=== PATIENT | male | born 1990 | race Caucasian/White ===

== ENCOUNTER 2021-03-04 14:42 | Observation (INO) | payer BC, SELFPAY ==
--- NOTE | ~2021-03-04 | CT_ITS ---
EXAMINATION: CT abdomen pelvis w con DATE: 03/04/2021 18:15 INDICATION: Right lower quadrant abdominal pain. TECHNIQUE: Computed tomography (CT) of the abdomen and pelvis was performed with 100 mL Omnipaque 350 intravenous contrast. Automated exposure control and iterative reconstruction technique were employe d. The dose-length product was 323.59 mGy-cm. COMPARISON: None. FINDINGS: The visualized portions of the lung bases demonstrate minimal atelectasis. No pleural effus ion. The heart size is normal. No pericardial effusion. The liver, gallbladder, spleen, pancreas, adr enal glands, and kidneys are normal. The bladder is distended. The tip of the appendix is fluid-fille d with diameter of 7 mm. There are no pathologically enlarged lymph nodes. There is no free intraperi toneal fluid. There is a right inguinal hernia containing fat. 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 IMPRESSION: 1. Appendiceal diameter of 7 mm, which is indeterminate for appendicitis. 2. Right inguinal hernia containing fat. Reviewed, dictated and finalized at location A.
[2021-03-04 14:49] VITALS: BP 174/88; PULSE 71; RESP 20; TEMP 36.5; O2SAT 100
[2021-03-04 15:10] LABS: Basophils Absolute Auto 0.1 K/mm3 (0.0-0.1); Basophils Percent Auto 1.1 % (0.2-1.2); Eosinophils Absolute Auto 0.2 K/mm3 (0-0.3); Eosinophils Percent Auto 2.1 % (0-4.4); Hematocrit 45.5 % (42.0-52.0); Hemoglobin 15.7 g/dL (14.0-18.0); Immature Granulocyte Absolute 0.02 K/mm3 (0.00-0.031); Immature Granulocyte Percent A 0.2 % (0-0.5); Lymphocytes Absolute Auto 2.89 K/mm3 (0.9-3.2); Lymphocytes Percent Auto 35.5 % (18.3-44.2); Mean Corpuscular HGB Conc 34.5 g/dl (32-36); Mean Corpuscular Hemoglobin 31.5 pg (26-34); Mean Corpuscular Volume 91.4 fl (80-100); Mean Platelet Volume 11.7 fl (7.4-10.4); Monocytes Absolute Auto 0.7 K/mm3 (0.1-0.6); Monocytes Percent Auto 8.2 % (2.6-8.5); Neutrophils Absolute Auto 4.3 K/mm3 (1.3-6.7); Neutrophils Percent Auto 52.9 % (45.5-73.1); Platelet Count Result 194 k/mm3 (150-375); Red Blood Count 4.98 M/mm3 (4.6-6.20); Red Cell Distribution Width 11.9 % (11.5-14.5); White Blood Count 8.2 K/mm3 (4.5-10.0)
[2021-03-04 15:21] LABS: Add Urine Microscopic? NO; Appearance Urine Clear (Clear); Bilirubin Urine Negative (Negative); Blood Urine Negative (Negative); Color Urine Straw (Yellow); Glucose Urine UA Negative (Negative); Ketones Urine Negative (Negative); Leukocyte Esterase Ur Negative LEU/UL (Negative); Nitrate Urine Negative (Negative); Protein Urine Negative (Negative); Specific Grav Ur 1.006 (1.001-1.035); Urobilinogen Urine Negative mg/dL (<2.0)
[2021-03-04 15:27] LABS: Alanine Aminotransferase 27 U/L (4-50); Albumin Level 4.9 g/dL (3.5-5.1); Alkaline Phosphatase 48 U/L (38-126); Anion Gap 6 mmol/L (8-16); Aspartate Amino Transferase 30 U/L (17-59); Bilirubin,Total 0.6 mg/dL (0.2-1.3); Blood Urea Nitrogen 14 mg/dL (9-20); Calcium 9.2 mg/dL (8.4-10.2); Carbon Dioxide 31 mmol/L (22-30); Chloride 102 mmol/L (98-107); Estimated CRCL calculation 97 ml/min; Estimated Glomerular Filt Rate > 60; Glucose 117 mg/dL (65-110); Lipase 183 U/L (23-300); Sodium 139 mmol/L (137-145)
--- NOTE | 2021-03-04 17:03 | ED.ABDPAIN ---
HPI - Abdominal Pain General Chief Complaint: Abdominal Pain <Leda Kumar PA-C - Last Filed: 03/04/21 19:14> Stated Complaint: RLQ ABD PAIN <Leda Kumar PA-C - Last Filed: 03/04/21 19:14> Time Seen by Provider: 03/04/21 16:56 <Leda Kumar PA-C - Last Filed: 03/04/21 19:14> Source: patient <Leda Kumar PA-C - Last Filed: 03/04/21 19:14> Mode of arrival: ambulatory <Leda Kumar PA-C - Last Filed: 03/04/21 19:14> Limitations: no limitations <Leda Kumar PA-C - Last Filed: 03/04/21 19:14> History of Present Illness HPI narrative: Patient presents the emergency department for right lower quadrant abdominal pain noted over the last couple of days. Reports pain is a constant ache. Worse with palpation of the area. Denies fever, nausea, vomiting, dysuria, hematuria. <Leda Kumar PA-C - Last Filed: 03/04/21 19:14> Related Data Allergies/Adverse Reactions: Allergies Allergy/AdvReac Type Severity Reaction Status Date / Time No Known Allergies Allergy Unverified 07/03/19 08:22 <Leda Kumar PA-C - Last Filed: 03/04/21 19:14> Review of Systems Review of Systems: CONSTITUTIONAL: Denies fever GASTROINTESTINAL: Reports abdominal pain. Denies nausea, vomiting, or diarrhea. GENITOURINARY: Denies dysuria or hematuria. <Leda Kumar PA-C - Last Filed: 03/04/21 19:14> All systems reviewed & are unremarkable except as noted in HPI and below <Leda Kumar PA-C - Last Filed: 03/04/21 19:14> [facility] Past Medical History Medical History: Medical History (Updated 03/04/21 @ 19:13 by Leda Kumar PA-C) No active medical problems <Leda Kumar PA-C - Last Filed: 03/04/21 19:14> Family History Family History: Family History Father Family history of elevated blood lipids Hypertension Grandparent Family history of elevated blood lipids Cerebrovascular accident Acute myocardial infarction, Onset Age: 86 Carcinoma of colon, Onset Age: 61 Family history of lung cancer, Onset Age: 67 Family history of malignant neoplasm of esophagus, Onset Age: 67 Mother Patient's mother is in good health Sibling Patient's sister is in good health <Leda Kumar PA-C - Last Filed: 03/04/21 19:14> Social History Social History: Social History Smoking status: Never smoker Second hand tobacco smoke exposure: No Alcohol intake: current Drinks per week: 6 Alcohol use details: beer, whiskey Substance use: never <Leda Kumar PA-C - Last Filed: 03/04/21 19:14> Exam Narrative: GENERAL: Well-appearing, well-nourished, and in no acute distress. HEAD: Normocephalic, atraumatic. EYES: EOMI. CHEST: Clear to auscultation. No respiratory distress. No wheezes rales or rhonchi HEART: Regular rate and rhythm. No murmur heard. Normal peripheral pulses. ABDOMEN: Soft, nondistended, normal active bowel sounds. Tender to palpation in the right lower quadrant, without guarding. No CVA tenderness EXTREMITIES: Normal range of motion. No edema. SKIN: Warm, dry, no rash. NEURO: No focal deficits. Alert and oriented x3. PSYCH: Normal mood and affect <AMARILYS Velasco Last Filed: 03/04/21 19:14> Course BONE PROCESS OPERATOR/PA Physician Supervision For this encounter, I have reviewed the PA documentation, treatment plan and medical decision making: And I have had [id number] time with the patient. On exam the patient is tender to palpation in the right lower quadrant there is no tenderness in the left lower quadrant left upper quadrant right upper quadrant no rebound. Discussed with patient plan for admission with serial examinations and followed by surgery in agreement at this time all questions answered <Edward Hays DO - Last Filed: 03/04/21 19:09> Consultations Consultation #1: Spo
[2021-03-04 18:53] VITALS: BP 138/72; PULSE 72; RESP 20; O2SAT 99
--- NOTE | 2021-03-04 21:20 | ADMGEN ---
This patient, Charles Cat, was admitted to 2 Medical Room 260-01 @2100. Patient/family oriented to hospital policies and general routines including ID bracelet, bed and alarms, visiting hours, pain management, procedures, bathroom and other care routines, personal items, smoking policy, room service/diet, and visiting hours. Information on how to activate the Rapid Response Team has been discussed. Patient/Family are encouraged to report perceived risks to care and to ask questions if they do not understand what they are told or what they should do.
[2021-03-04] MEDS: SODIUM CHLORIDE 0.9% IV 1,000 ML 125 ML IV CONT (21:31)
[2021-03-04 22:00] VITALS: BP 126/87; PULSE 75; RESP 16; TEMP 36.4; O2SAT 94
[2021-03-05] VITALS (8 sets, daily range): BP systolic 103–120; BP diastolic 60–72; PULSE 66–97; RESP 14–18; TEMP 36.2–36.6; O2SAT 96–100
[2021-03-05] MEDS: SODIUM CHLORIDE 0.9% IV 1,000 ML 125 ML IV CONT (06:02)
--- NOTE | 2021-03-05 07:03 | PC.NURSE ---
To OR per bed. IV intact.
--- NOTE | 2021-03-05 07:11 | PM.IMHP ---
H&P: HPI History of Present Illness Date/Time: 03/05/21 07:11 Pt is a 30 y/o M presenting to ED c/o severe RLQ abd pain. Pt reports pain over last few days although initially more diffuse and less severe in nature. Pt reports starting last night pain became much more localized and severe. Pt reports no other symptoms and denies previous episodes. Chief Complaint: acute appendicitis Review of Systems Constitutional: Constitutional: Denies anorexia, Denies body ache(s), Denies chills, Denies fatigue, Denies fever(s), Denies headache(s), Denies lethargy, Denies poor appetite, Denies weakness, Denies weight gain and Denies weight loss Eyes: Eyes: Reports no additional eye complaints ENT: Reports system reviewed and no additional complaints, except as documented Cardiovascular: Cardiovascular: Reports no additional cardiovascular complaints Respiratory: Respiratory: Reports no additional respiratory complaints Gastrointestinal: Gastrointestinal: Reports as per HPI, Reports abdominal pain, Denies belching, Denies change in bowel habits, Denies nausea and Denies vomiting Genitourinary: Genitourinary: Reports no additional male genitourinary complaints Musculoskeletal: Musculoskeletal: Reports no additional musculoskeletal complaints Integumentary/Breasts: Skin/Breast: Reports system reviewed and no additional complaints, except as docu Neurologic: Reports system reviewed and no additional complaints, except as documented Psychiatric: Psychiatric: Reports no additional psychiatric complaints Endocrine: Endocrine: Reports no additional endocrine complaints Hematologic/Lymphatic: Hematologic/Lymphatic: Reports no additional hematologic/lymphatic complaints Allergic/Immunologic: Allergic/Immunologic: Reports no additional allergic/immunologic complaints [facility] Past Medical History Medical History No active medical problems Family History Family History Father Family history of elevated blood lipids Hypertension Grandparent Family history of elevated blood lipids Cerebrovascular accident Acute myocardial infarction, Onset Age: 86 Carcinoma of colon, Onset Age: 61 Family history of lung cancer, Onset Age: 67 Family history of malignant neoplasm of esophagus, Onset Age: 67 Mother Patient's mother is in good health Sibling Patient's sister is in good health Social History Social History Smoking status: Never smoker Second hand tobacco smoke exposure: No Alcohol intake: current Drinks per week: 3 Alcohol use details: beer, whiskey Substance use: never Substance use type: does not use Spiritual care concerns: No Comments PSH - pt denies any previous abdominal surgeries Meds Home Medications and Allergies Home Medications Medication Instructions Recorded Confirmed Type amitriptyline 50 mg PO QPM 03/04/21 03/04/21 History Allergies Allergy/AdvReac Type Severity Reaction Status Date / Time No Known Allergies Allergy Verified 03/04/21 21:21 Vital Signs Vital Signs - 24 hr 03/04/21 14:49 03/04/21 18:53 03/04/21 22:00 Temperature 36.5 C 36.4 C Pulse Rate 71 72 75 Respiratory Rate 20 20 16 Blood Pressure 174/88 H 138/72 126/87 Pulse Oximetry 100 99 94 03/05/21 06:00 Temperature 36.3 C L Pulse Rate 70 Respiratory Rate 16 Blood Pressure 120/71 Pulse Oximetry 97 Exam Const: General: cooperative, healthy appearing, comfortable, no acute distress, well developed, alert, awake, Physically active and well groomed Nutritional Appearance: average body habitus Orientation/consciousness: patient oriented x3 Limitations: no limitations HENMT: Head: normal to inspection, normocephalic and atraumatic Ears: hearing grossly normal bilaterally General nose exam: Normal external nose present Face and
--- NOTE | 2021-03-05 07:24 | WPDANESEPP ---
Anes - Eval Pre Procedure Procedure: Operation Date: 03/05/21 07:30 Proposed Procedures p Laparoscopic Appendectomy - Sheree Mosher MD Date/Time: 03/05/21 07:24 Pre Op Diagnosis: appendicitis Patient Data Age: 30 Gender: M Height: 1.78 m Weight: 81.6 kg Last Vital Signs Temp 36.3 C L 03/05/21 06:00 Pulse 70 03/05/21 06:00 Resp 16 03/05/21 06:00 BP 120/71 03/05/21 06:00 Pulse Ox 97 03/05/21 06:00 Allergies Allergy/AdvReac Type Severity Reaction Status Date / Time No Known Allergies Allergy Verified 03/04/21 21:21 Home Medications Medication Instructions Recorded Confirmed Type amitriptyline 50 mg PO QPM 03/04/21 03/04/21 History Laboratory Tests 03/04/21 03/04/21 03/04/21 14:54 14:54 15:10 WBC 8.2 K/mm3 K/mm3 (4.5-10.0) RBC 4.98 M/mm3 M/mm3 (4.6-6.20) Hgb 15.7 g/dL g/dL (14.0-18.0) Hct 45.5 % % (42.0-52.0) MCV 91.4 fl fl (80-100) MCH 31.5 pg pg (26-34) MCHC 34.5 g/dl g/dl (32-36) RDW 11.9 % % (11.5-14.5) Plt Count 194 k/mm3 k/mm3 (150-375) MPV 11.7 fl H fl (7.4-10.4) Immature Gran % (Auto) 0.2 % % (0-0.5) Neut % (Auto) 52.9 % % (45.5-73.1) Lymph % (Auto) 35.5 % % (18.3-44.2) [place] % (Auto) 8.2 % % (2.6-8.5) Eos % (Auto) 2.1 % % (0-4.4) Baso % (Auto) 1.1 % % (0.2-1.2) Lymph # (Auto) 2.89 K/mm3 K/mm3 (0.9-3.2) [place] # (Auto) 0.7 K/mm3 H K/mm3 (0.1-0.6) Eos # (Auto) 0.2 K/mm3 K/mm3 (0-0.3) Baso # (Auto) 0.1 K/mm3 K/mm3 (0.0-0.1) Abs Immat Gran (auto) 0.02 K/mm3 K/mm3 (0.00-0.031) Absolute Neuts (auto) 4.3 K/mm3 K/mm3 (1.3-6.7) Absolute Nucleated RBC 0.0 K/mm3 K/mm3 (0.0-0.012) Nucleated RBC % 0.0 % % (0.0-0.2) Sodium 139 mmol/L mmol/L (137-145) Potassium 4.0 mmol/L mmol/L (3.4-5.0) Chloride 102 mmol/L mmol/L (98-107) Carbon Dioxide 31 mmol/L H mmol/L (22-30) Anion Gap 6 mmol/L L mmol/L (8-16) BUN 14 mg/dL mg/dL (9-20) Creatinine 1.00 mg/dL mg/dL (0.7-1.3) Estim Creat Clear Calc 97 ml/min ml/min Estimated GFR > 60 (59 - ) Glucose 117 mg/dL H mg/dL (65-110) Calcium 9.2 mg/dL mg/dL (8.4-10.2) Total Bilirubin 0.6 mg/dL mg/dL (0.2-1.3) AST 30 U/L U/L (17-59) ALT 27 U/L U/L (4-50) Alkaline Phosphatase 48 U/L U/L (38-126) Total Protein 7.0 g/dL g/dL (6.3-8.2) Albumin 4.9 g/dL g/dL (3.5-5.1) Lipase 183 U/L U/L (23-300) Urine Color Straw (Yellow) Urine Appearance Clear (Clear) Urine pH 7.0 (5.0-9.0) Ur Specific [place] 1.006 (1.001-1.035) Urine Protein Negative mg/dL mg/dL (Negative) Urine Glucose (UA) Negative mg/dL mg/dL (Negative) Urine Ketones Negative mg/dL mg/dL (Negative) Ur Blood (Man) Negative (Negative) Urine Nitrate Negative (Negative) Urine Bilirubin Negative (Negative) Urine Urobilinogen Negative mg/dL mg/dL (<2.0) Leukocyte Esterase Rfl Negative MELVINA/UL MELVINA/UL (Negative) Patient hx anesthesia problems: none Family hx anesthesia problems: none Results Review: All pre-operative results and documents have been reviewed as part of the pre-operative evaluation. [facility] Past Medical History Medical History No active medical problems Family History Family History Father Family history of elevated blood lipids Hypertension Grandparent Family history of elevated blood lipids Cerebrovascular accident Acute myocardial
--- NOTE | 2021-03-05 07:29 | WPDANESEPPF ---
Anes - Initial Pre Proc Eval Procedure: Operation Date: 03/05/21 07:30 Proposed Procedures p Laparoscopic Appendectomy - Sheree Mosher MD Date/Time: 03/05/21 07:29 Surgeon: Sheree Mosher MD Pre Op Diagnosis: appendicitis Patient Data Age: 30 Gender: M Height: 1.78 m Weight: 81.6 kg Last Vital Signs Temp 36.3 C L 03/05/21 06:00 Pulse 70 03/05/21 06:00 Resp 16 03/05/21 06:00 BP 120/71 03/05/21 06:00 Pulse Ox 97 03/05/21 06:00 Allergies Allergy/AdvReac Type Severity Reaction Status Date / Time No Known Allergies Allergy Verified 03/04/21 21:21 Home Medications Medication Instructions Recorded Confirmed Type amitriptyline 50 mg PO QPM 03/04/21 03/04/21 History Laboratory Tests 03/04/21 03/04/21 03/04/21 14:54 14:54 15:10 WBC 8.2 K/mm3 K/mm3 (4.5-10.0) RBC 4.98 M/mm3 M/mm3 (4.6-6.20) Hgb 15.7 g/dL g/dL (14.0-18.0) Hct 45.5 % % (42.0-52.0) MCV 91.4 fl fl (80-100) MCH 31.5 pg pg (26-34) MCHC 34.5 g/dl g/dl (32-36) RDW 11.9 % % (11.5-14.5) Plt Count 194 k/mm3 k/mm3 (150-375) MPV 11.7 fl H fl (7.4-10.4) Immature Gran % (Auto) 0.2 % % (0-0.5) Neut % (Auto) 52.9 % % (45.5-73.1) Lymph % (Auto) 35.5 % % (18.3-44.2) [place] % (Auto) 8.2 % % (2.6-8.5) Eos % (Auto) 2.1 % % (0-4.4) Baso % (Auto) 1.1 % % (0.2-1.2) Lymph # (Auto) 2.89 K/mm3 K/mm3 (0.9-3.2) [place] # (Auto) 0.7 K/mm3 H K/mm3 (0.1-0.6) Eos # (Auto) 0.2 K/mm3 K/mm3 (0-0.3) Baso # (Auto) 0.1 K/mm3 K/mm3 (0.0-0.1) Abs Immat Gran (auto) 0.02 K/mm3 K/mm3 (0.00-0.031) Absolute Neuts (auto) 4.3 K/mm3 K/mm3 (1.3-6.7) Absolute Nucleated RBC 0.0 K/mm3 K/mm3 (0.0-0.012) Nucleated RBC % 0.0 % % (0.0-0.2) Sodium 139 mmol/L mmol/L (137-145) Potassium 4.0 mmol/L mmol/L (3.4-5.0) Chloride 102 mmol/L mmol/L (98-107) Carbon Dioxide 31 mmol/L H mmol/L (22-30) Anion Gap 6 mmol/L L mmol/L (8-16) BUN 14 mg/dL mg/dL (9-20) Creatinine 1.00 mg/dL mg/dL (0.7-1.3) Estim Creat Clear Calc 97 ml/min ml/min Estimated GFR > 60 (59 - ) Glucose 117 mg/dL H mg/dL (65-110) Calcium 9.2 mg/dL mg/dL (8.4-10.2) Total Bilirubin 0.6 mg/dL mg/dL (0.2-1.3) AST 30 U/L U/L (17-59) ALT 27 U/L U/L (4-50) Alkaline Phosphatase 48 U/L U/L (38-126) Total Protein 7.0 g/dL g/dL (6.3-8.2) Albumin 4.9 g/dL g/dL (3.5-5.1) Lipase 183 U/L U/L (23-300) Urine Color Straw (Yellow) Urine Appearance Clear (Clear) Urine pH 7.0 (5.0-9.0) Ur Specific [place] 1.006 (1.001-1.035) Urine Protein Negative mg/dL mg/dL (Negative) Urine Glucose (UA) Negative mg/dL mg/dL (Negative) Urine Ketones Negative mg/dL mg/dL (Negative) Ur Blood (Man) Negative (Negative) Urine Nitrate Negative (Negative) Urine Bilirubin Negative (Negative) Urine Urobilinogen Negative mg/dL mg/dL (<2.0) Leukocyte Esterase Rfl Negative MELVINA/UL MELVINA/UL (Negative) Patient hx anesthesia problems: none Family hx anesthesia problems: none Results Review: All pre-operative results and documents have been reviewed as part of the pre-operative evaluation. PMF Past Medical History Medical History Anxiety Chronic intractable headache Family History Family History Father Family history of elevated blood lipids Hypertension Grandparent Family history of elevated bloo
--- NOTE | 2021-03-05 07:30 | WPDHPUPDATE1 ---
History and Physical Update Update Date/Time: 03/05/21 07:30 History and Physical has been reviewed, including an updated exam of the patient. There are NO changes in the patient's condition. Risks, benefits, and alternatives have been discussed and questions answered. Patient agrees to proceed with procedure.
--- NOTE | 2021-03-05 08:18 | P.OP_ITS ---
Procedure Note - Detailed Date of Procedure 03/05/21 Pre-op Diagnosis appendicitis Post-op Diagnosis same Procedure Performed laparoscopic appendectomy Surgeon Sheree Mosher MD Anesthesia general Indications 30 y/o M presenting to ED c early acute appendicitis Findings early appendicitis Description of Procedure The patient was taken to the operating room and placed in the supine position. After adequate induction of general anesthesia, the patient was prepped and draped in the normal sterile fashion. A time-out was then done to verify the patient's identity, as well as the procedure being performed. I began by making a 5 mm incision in the infraumbilical region, through this a Veress needle was placed in the peritoneal cavity. CO2 gas was then insufflated and after adequate pneumoperitoneum was achieved the Veress needle was removed. Then placed a 5 mm Optiview trocar under direct visualization into the peritoneal cavity. I then insufflated through this trocar site and the endoscope was plac ed into the trocar. Under direct visualization, placed 2 further 5 mm suprapubic port as well as an additional 12 mm port in the left lower abdomen. At this point identified the cecum, I retracted the cecum both medially and superiorly allowing me to expose the appendix. The appendix was noted to be moderately dilated and inflamed especially towards the tip. The appendix was noted to be very adherent to the right lateral sidewall as well as the ileum. I was able to bluntly dissect the appendix from these adhesions. I then was able to locate the base of the appendix with the cecum. I created a window with the [place] dissector between the appendix itself and the mesoappendix. The mesoappendix was quite long and a second staple load was required to complete the transection. I then transected the mesoappendix with a white vascular staple loads x 2. The Endo-LV was then reloaded with a blue staple load and I transected the base of the appendix. During the transection of the me soappendix, it was noted I incidentally transected the distal end of the appendix. Once the specimen was completely detached, an endo-pouch was placed into the 12 mm port site and the specimen was removed through the endo-pouch. The appendiceal specimen will be sent to pathology for further review. I then copiously irrigated the right lower quadrant. Hemostasis was noted at both staple lines no other pathology was seen in this area. I then moved the camera to the suprapubic port to check our its port of entry. No iatrogenic injury or other pathology was noted in the upper abdomen. I then closed the 12 mm port site with a King code and 0 Vicryl suture under direct visualization. At this point, the abdomen was desufflated and all ports were removed. All port sites were closed with 4 Monocryl subcuticular suture. Dermabond was placed on all wounds. The patient tolerated the procedure well and was extubated in the operating room postop. He will be sent to the recovery room in stable condition. Estimated Blood Loss 10 Drains No Packing No Pathology yes Complications No immediate complications Condition stable Disposition PACU
[2021-03-05] MEDS: LACTATED RINGERS 1,000 ML 30 ML IV CONT (08:20)
[2021-03-05] MEDS: fentaNYL CITRATE INJ (*CRX) 100 MCG/2 ML VIAL 25 MCG IV PUSH ×7 (08:37→09:08)
[2021-03-05] MEDS: oxyCODONE HCL (*CRX) 5 MG TAB IR PO (11:28)
--- NOTE | 2021-03-07 14:54 | PM.DS ---
DS: Admitting Diagnosis Discharge Date 03/05/21 Admitting Diagnosis Acute appendicitis DS: Discharge Diagnosis Discharge Diagnosis (1) Acute appendicitis: Qualifiers: Acute appendicitis type: with localized peritonitis Appendicitis abscess presence: without abscess Appendicitis gangrene presence: without gangrene Appendicitis perforation presence: without perforation Qualified Code(s): K35.30 - Acute appendicitis with localized peritonitis, without perforation or gangrene Code(s): K35.80 - Unspecified acute appendicitis Status: Acute Assessment and Plan: s/p lap appy, doing well, routine postop care, po anagesia, f/u 2 wks DS: Summary Hospital Course Reason for hospitalization: acute appendicitis Hospital Course: The patient is a 30-year-old male that presented to the Emergency department complaining of severe right lower quadrant abdominal pain. Workup, including imaging, was significant for acute appendicitis. Patient was admitted to the surgical service and made NPO. He was also started on IV antibiotics. Upon evaluation the following morning, decision was made for emergent appendectomy. Patient underwent laparoscopic appy on 03/05, please see full operative report for details of that procedure. Postoperative, the patient did well and was transferred back to the floor. Over the next few hours, he was able to tolerate a diet and he was up and ambulating without issue. His pain was well controlled with p.o. analgesia. He will be discharged home with follow-up in 2 weeks. Status at Discharge Functional status at discharge: independent ambulation Overall status at discharge: patient is progressing back to baseline Time Spent with Patient Time attestation: Total time spent providing and/or coordinating discharge services: Time spent: Less than 30 minutes Exam Const: General: cooperative, comfortable and no acute distress Nutritional Appearance: average body habitus Orientation/consciousness: patient oriented x3 Limitations: no limitations Resp: Effort & Inspection: normal respiratory effort Auscultation: clear to auscultation bilaterally Cardio: Rate: regular rate Rhythm: regular rhythm GI: Inspection: normal to inspection, distended and incision GI Palp: Yes Soft to palpation and Yes Tenderness to palpation present (GI) DS: Data Data Completed and Pending Pending studies at discharge: Pending at discharge 03/05/21 07:49 Surgical [PTH] Routine Discharge Plan Discharge Attending physician on discharge: Sheree Mosher Consulting providers: Leda Kumar ; Hema Matos V. Discharging Clinician: Sheree Mosher Anticipated Discharge Date/Time: 03/05/21 13:00 Patient Disposition: Home, Self-Care Activity: other - see discharge instructions Diet: other - see discharge instructions Wound Care Instructions: follow printed instructions Discharge Instructions: DISCHARGE INSTRUCTION SHEET FOR HERNIA, GALLBLADDER AND APPENDIX SURGERIES DR. MOSHER PATIENT TO TAKE HOME 1. May shower in 24 hours, no soaking in bath x 2weeks. 2. Call office for: Wound increasingly painful or bleeding Vomiting Fever of greater than 101 degrees 3. If no bowel movement for three days, take 1 oz. (30 ml) Milk of Magnesia or MiraLax 17g 1 to 2 times daily. 4. No heavy lifting > 10-15 pounds x 6 weeks for hernia repairs and 2 weeks for laparoscopic cholecystectomy or appendectomy. 5. No driving for 3 days or while taking narcotic pain medications. 6. Ice to surgical site for 48 hours (30 min on, then 30 min off). 7. Up walking 10-30 minutes three times per day. 8. Resume previous home medications. 9. Follow-up 10-14 days in office for wound check or as previously scheduled. ([phone]) 10. Oral pain medications prescription to be sent to pharmacy. Take Tylenol 500mg every 6 hours and Ibuprofen 6
== END 2021-03-05 13:45 | disposition home or self-care (01) ==
LOC: ANHED 19:13 → ANH2MED 20:10
PROVIDERS: Admitting Provider Surgery; Emergency Provider Emergency Medicine; PCP Internal Medicine; Visit Provider Surgery
PROC: 0DTJ4ZZ Resection of Appendix, Percutaneous Endoscopic Approach (ICD-10-PCS; CPT 44970; principal; 2021-03-05 07:30)
DX: K35.30 Acute appendicitis with localized peritonitis, without perforation or gangrene (principal)
CPT/HCPCS: 44970; 36415; 74177; 80053; 81003; 83690; 85025; 88304; 96361; 96365; 99285; A9270; G0378; J0330; J1100; J2405; J2543; J2704; J3010; J7030; J7120; Q9967

== ENCOUNTER → 2022-06-08 16:06 | Outpatient (CLI) | payer BC, SELFPAY ==
--- NOTE | ~2022-06-08 | XR_ITS ---
EXAMINATION: XR abdomen obstructive series DATE: 06/08/2022 16:27 INDICATION: Constipation. TECHNIQUE: Upright and supine views of the abdomen on 3 radiographs were obtained. COMPARISON: CT abdomen and pelvis 03/04/2021 FINDINGS: There are no dilated loops of bowel. There is a small volume of stool in the colon. No free intraperitoneal gas. IMPRESSION: 1. Normal bowel gas pattern. Reviewed, dictated and finalized at location A. MERCE MANAGER
== END ==
PROVIDERS: PCP Nurse Practitioner; Visit Provider Nurse Practitioner
DX: K59.00 Constipation, unspecified (principal)
CPT/HCPCS: 74019

== ENCOUNTER 2022-06-13 13:55 | Emergency (ER) | payer BC, SELFPAY ==
[2022-06-13 14:09] VITALS: BP 107/90; PULSE 85; RESP 16; TEMP 36.8; O2SAT 100
--- NOTE | 2022-06-14 18:41 | ED.URI ---
HPI - URI/Sore Throat General Chief Complaint: Upper Respiratory Infection Stated Complaint: BLISTERS IN THROAT Time Seen by Provider: 06/13/22 14:15 Source: patient Mode of arrival: ambulatory Limitations: no limitations History of Present Illness HPI Narrative: 32 yo M presents with c/o sore throat starting today. Worse when swallowing. No other symptoms. All systems reviewed and negative except as noted above. Related Data Allergies Allergy/AdvReac Type Severity Reaction Status Date / Time No Known Allergies Allergy Verified 06/08/22 15:43 Review of Systems Review of Systems: CONSTITUTIONAL: Denies fever, chills, or sweats. EYES: Denies visual changes, redness, or discharge. ENT: Denies rhinorrhea, congestion . Reports sore throat. CARDIOVASCULAR: Denies chest pain, palpitations, or edema. RESPIRATORY: Denies cough or dyspnea. GASTROINTESTINAL: Denies abdominal pain, nausea, vomiting, or diarrhea. GENITOURINARY: Denies dysuria or hematuria. SKIN: Denies rash or itching. MUSCULOSKELETAL: Denies back pain, joint pain, or myalgia. NEUROLOGIC: Denies headache, numbness, or weakness. PSYCHIATRIC: Denies anxiety or depression. All other systems reviewed are negative, except as documented in HPI. [facility] Past Medical History Medical History Anxiety Chronic intractable headache Surgical History Surgical History History of appendectomy 03/05/21 Family History Family History Father Family history of elevated blood lipids Hypertension Grandparent Family history of elevated blood lipids Cerebrovascular accident Acute myocardial infarction, Onset Age: 88 Carcinoma of colon, Onset Age: 61 Family history of lung cancer, Onset Age: 67 Family history of malignant neoplasm of esophagus, Onset Age: 67 Mother Patient's mother is in good health Sibling Patient's sister is in good health Social History Social History Smoking status: Never smoker Second hand tobacco smoke exposure: No Alcohol intake: current Drinks per week: 3 Alcohol use details: beer, whiskey Substance use: never Substance use type: does not use Lack of Transportation: No Lack of Food: Never True Current Housing: I Have Housing Concerned About Future Housing: No Difficulty Paying Gas/Electric Bills: No Difficulty Paying for Meds: No Currently Unemployed: No Education: Master's Degree or Higher Difficulty w/ Childcare or Family Care: No Spiritual care concerns: No Comments At time of signature, agree with nursing past medical, surgical, social and family history. There is no relevant family history pertinent to the presenting complaint. Exam Narrative: GENERAL: This is a well-nourished, well-developed patient, in no apparent distress. HEAD: normocephalic, atraumatic. EYES: PERRL. Sclera clear/white. Vision is grossly intact. EARS: External ears normal, auditory canals clear and without drainage, TMs normal without perforation. Hearing grossly intact. NOSE: External nose normal with no obvious nasal discharge, nares without redness, no rhinorrhea. THROAT: Mucous membranes moist, erythematous vesicles to roof of mouth near uvula. tender on palapation. NECK: Neck supple, non-tender without lymphadenopathy, masses or thyromegaly. CARDIOVASCULAR: Regular rate and rhythm without murmurs, gallops, or rubs. RESPIRATORY: Clear to auscultation. Breath sounds equal bilaterally. No wheezes, rales, or rhonchi. SKIN: warm, Dry, intact with no suspicious lesions or rash, good texture and turgor. NEURO: awake, alert, and oriented to person, place and time. There were no obvious focal neurologic abnormalities. EXTREMITIES: No joint tenderness, effusion, or edema noted. Course Course
== END 2022-06-13 14:34 | disposition home or self-care (01) ==
PROVIDERS: Emergency Provider Nurse Practitioner Family; PCP Family Medicine
DX: J02.9 Acute pharyngitis, unspecified (principal); F41.9 Anxiety disorder, unspecified
CPT/HCPCS: 87081; 87255; 87880; 99213; G0463

== ENCOUNTER 2022-06-26 15:15 | Emergency (ER) | payer BC, SELFPAY ==
[2022-06-26] VITALS (16 sets, daily range): BP systolic 130–142; BP diastolic 86–101; PULSE 71–87; RESP 8–22; TEMP 36.7; O2SAT 98–100
--- NOTE | ~2022-06-26 | CT_ITS ---
EXAMINATION: CT brain wo con DATE: 06/26/2022 15:29 INDICATION: Left-sided numbness. TECHNIQUE: Computed tomography (CT) of the head was performed without intravenous contrast. The mA wa s adjusted according to patient size. Iterative reconstruction technique was employed. The dose-lengt h product was 681.00 mGy-cm. COMPARISON: Brain MRI 11/09/2016 FINDINGS: There is no intracranial hemorrhage, acute infarction, or abnormal intracranial mass lesion . The ventricles are normal in size. The orbits are normal. The paranasal sinuses are clear. The mast oid air cells are normal. IMPRESSION: 1. Normal brain. I called this result to Dr. Mccoy. Reviewed, dictated and finalized at location A. ERVATION OFFICER
[2022-06-26 16:09] LABS: Basophils Absolute Auto 0.1 K/mm3 (0.0-0.1); Basophils Percent Auto 1.4 % (0.2-1.2); Eosinophils Absolute Auto 0.2 K/mm3 (0-0.3); Eosinophils Percent Auto 3.1 % (0-4.4); Hematocrit 46.4 % (42.0-52.0); Hemoglobin 15.8 g/dL (14.0-18.0); Immature Granulocyte Absolute 0.02 K/mm3 (0.00-0.031); Immature Granulocyte Percent A 0.3 % (0-0.5); Lymphocytes Absolute Auto 2.22 K/mm3 (0.9-3.2); Lymphocytes Percent Auto 34.6 % (18.3-44.2); Mean Corpuscular HGB Conc 34.1 g/dl (32-36); Mean Platelet Volume 12.3 fl (7.4-10.4); Monocytes Absolute Auto 0.4 K/mm3 (0.1-0.6); Monocytes Percent Auto 6.9 % (2.6-8.5); Neutrophils Absolute Auto 3.4 K/mm3 (1.3-6.7); Neutrophils Percent Auto 53.7 % (45.5-73.1); Platelet Count Result 171 k/mm3 (150-375); Red Cell Distribution Width 12.2 % (11.5-14.5); White Blood Count 6.4 K/mm3 (4.5-10.0)
[2022-06-26 16:23] LABS: Alanine Aminotransferase 24 U/L (6-50); Albumin Level 4.5 g/dL (3.5-5.1); Alkaline Phosphatase 41 U/L (38-126); Anion Gap 5 mmol/L (8-16); Aspartate Amino Transferase 28 U/L (17-59); Bilirubin,Total 0.5 mg/dL (0.2-1.3); Blood Urea Nitrogen 14 mg/dL (9-20); Calcium 8.7 mg/dL (8.4-10.2); Carbon Dioxide 33 mmol/L (22-30); Chloride 101 mmol/L (98-107); Estimated CRCL calculation 117 ml/min; Estimated Glomerular Filt Rate > 60; Glucose 117 mg/dL (65-110); Potassium 3.2 mmol/L (3.4-5.0); Sodium 139 mmol/L (137-145)
--- NOTE | 2022-06-26 16:48 | ED.NEUROSD ---
HPI - Neuro Symptoms/Deficit General Chief Complaint: Neuro Symptoms/Deficit Stated Complaint: facial numbness about an hour ago Time Seen by Provider: 06/26/22 15:52 Source: patient Mode of arrival: ambulatory Limitations: no limitations History of Present Illness HPI Narrative: Patient is a 32 years old white male was sitting on the computer and suddenly felt numbness and weakness at the left side of his face, went to the mirror, and found his smile is abnormal. He denies any numbness, tingling or weakness anywhere else in his body. He denies any fever, chills, nausea, vomiting. His symptoms improved on arrival to the ED. Related Data Allergies Allergy/AdvReac Type Severity Reaction Status Date / Time No Known Allergies Allergy Verified 06/08/22 15:43 Review of Systems Review of Systems: All systems reviewed & are unremarkable except as noted in HPI and below PMFSH Past Medical History Medical History Anxiety Chronic intractable headache Surgical History Surgical History History of appendectomy 03/05/21 Family History Family History Father Family history of elevated blood lipids Hypertension Grandparent Family history of elevated blood lipids Cerebrovascular accident Acute myocardial infarction, Onset Age: 86 Carcinoma of colon, Onset Age: 61 Family history of lung cancer, Onset Age: 67 Family history of malignant neoplasm of esophagus, Onset Age: 67 Mother Patient's mother is in good health Sibling Patient's sister is in good health Social History Social History Smoking status: Never smoker Second hand tobacco smoke exposure: No Alcohol intake: current Drinks per week: 3 Alcohol use details: beer, whiskey Substance use: never Substance use type: does not use Lack of Transportation: No Lack of Food: Never True Current Housing: I Have Housing Concerned About Future Housing: No Difficulty Paying Gas/Electric Bills: No Difficulty Paying for Meds: No Currently Unemployed: No Education: Master's Degree or Higher Difficulty w/ Childcare or Family Care: No Spiritual care concerns: No Exam Narrative: General appearance: Well-developed, well-nourished Skin: Normal color Head: Normocephalic, nontraumatic Eyes: Clear conjunctiva ENT: Oropharynx normal, ears normal, nose normal Neck: Supple, nontender Chest and respiratory: Airway patent, no respiratory distress, no accessory muscle use Heart: Regular rate/rhythm Abdomen: Soft, nontender, no organomegaly, quiet bowel sounds Vascular: Normal peripheral pulses, normal capillary refill. Musculoskeletal: Normal range of motion, nontender back Neurologic: Alert and oriented ?3, inability to close the left eye as much as the right 1, slight inability to smile on the left side, Course Vital Signs Vital signs: Vital Signs Temperature 36.7 C 06/26/22 15:39 Pulse Rate 76 06/26/22 15:39 Respiratory Rate 18 06/26/22 15:39 Blood Pressure 140/96 H 06/26/22 15:39 Pulse Oximetry 100 06/26/22 15:39 Temperature 36.7 C 06/26/22 15:39 Pulse Rate 71 06/26/22 15:49 Respiratory Rate 16 06/26/22 15:49 Blood Pressure 130/95 H 06/26/22 15:49 Pulse Oximetry 100 06/26/22 15:49 MDM - Neuro Symptoms/Deficit MDM Narrative Medical decision making narrative: Patient presents with sudden onset of left facial paralysis of upper and lower face muscles. Gets slightly better few minutes later. Patient shira
== END 2022-06-26 17:18 | disposition home or self-care (01) ==
PROVIDERS: Emergency Provider Emergency Medicine; PCP Family Medicine
DX: G51.0 Bell's palsy (principal); F41.9 Anxiety disorder, unspecified
CPT/HCPCS: 36415; 70450; 80053; 85025; 99284

== ENCOUNTER → 2023-01-25 07:47 | Outpatient (CLI) | payer BC, SELFPAY ==
--- NOTE | ~2023-01-25 | US_ITS ---
Limited Abdominal Sonogram: Real-time sonographic imaging of the left upper quadrant was performed. Clinical History: Left upper quadrant pain Findings: Spleen is normal in size, without focal lesion. Left kidney measures 10.5 cm in length, wit hout evidence of hydronephrosis. The focal area of pain superficially, there is suggestion of a subtle 1.5 x 0.4 x 0.7 cm hyperechoic masslike structure. This could represent a small fat-containing hernia or small lipoma.. Impression: 1.5 x 0.4 x 0.7 cm hyperechoic masslike structure superficially at the focal area of clinical concern . This is somewhat nonspecific. Diagnostic insertions could include fat-containing hernia or lipoma. Reviewed, dictated and finalized at location M. Impression: 1.5 x 0.4 x 0.7 cm hyperechoic masslike structure superficially at the focal ar ea of clinical concern. This is somewhat nonspecific. Diagnostic insertions cou ld include fat-containing hernia or lipoma.
== END ==
PROVIDERS: PCP Nurse Practitioner; Visit Provider Nurse Practitioner
DX: R10.12 Left upper quadrant pain (principal)
CPT/HCPCS: 76705

== ENCOUNTER 2023-02-21 01:11 | Day surgery (SDC) | payer BC, SELFPAY ==
[2023-02-14 12:24] VITALS: BMI 25.9
--- NOTE | 2023-02-20 16:52 | PM.HPGS ---
History of Present Illness History of Present Illness Consent: Risks, benefits, and alternatives have been discussed and questions answered. Patient agrees to proceed with procedure. Chief complaint: Left upper quadrant pain Narrative: Charles Cat is a 32 year old male referred for investigation of left upper quadrant pain. He does take NSAIDs a couple of times a week. the pain is in left upper quadrant underneath his rib cage. pain comes and goes, typically last for less then a minute then resolves. ? He denies any radiation of pain.? pain seems to be triggered by carbonated beverages, sparkling water, and alcohol? but did have an episode few days ago while he was cutting grass. ? He denies any association with foods.He does report intermittent heartburn after meals 2-3 times a week, this is not new.? He treats the heartburn with Tums or Gas-X as needed. ? He is not sure if this helps with his left upper quadrant pain. Review of Systems Review of Systems: All systems reviewed & are unremarkable except as noted in HPI and below PMFSH Past Medical History Medical History Anxiety Chronic intractable headache Surgical History Surgical History History of appendectomy 03/05/21 Family History Family History Father Family history of elevated blood lipids Hypertension Grandparent Family history of elevated blood lipids Cerebrovascular accident Acute myocardial infarction, Onset Age: 86 Carcinoma of colon, Onset Age: 61 Family history of lung cancer, Onset Age: 67 Family history of malignant neoplasm of esophagus, Onset Age: 67 Mother Patient's mother is in good health Sibling Patient's sister is in good health Social History Social History Smoking status: Never smoker Second hand tobacco smoke exposure: No Alcohol intake: current Drinks per week: 14 Alcohol use details: beer, whiskey Substance use: never Substance use type: does not use Lack of Transportation: No Lack of Food: Never True Current Housing: I Have Housing Concerned About Future Housing: No Difficulty Paying Gas/Electric Bills: No Difficulty Paying for Meds: No Currently Unemployed: No Education: Master's Degree or Higher Difficulty w/ Childcare or Family Care: No Living arrangements: with family Spiritual care concerns: No Meds Home Medications and Allergies Home Medications Medication Instructions Recorded Confirmed Type amitriptyline 50 mg tablet 50 mg PO QPM #90 tabs 03/30/22 02/14/23 Rx famotidine 20 mg tablet (Pepcid) 20 mg PO DAILY 1 month #30 tabs 02/08/23 02/14/23 Rx Allergies Allergy/AdvReac Type Severity Reaction Status Date / Time No Known Allergies Allergy Verified 02/21/23 11:49 Exam Const: General: alert Orientation/consciousness: patient oriented x3 Resp: Auscultation: clear to auscultation bilaterally Cardio: Rhythm: regular rhythm GI: GI Palp: Yes Soft to palpation and No Tenderness to palpation present (GI) Neuro: General: patient oriented x3 Assessment and Plan Assessment and plan (1) LUQ abdominal pain: Code(s): R10.12 - Left upper quadrant pain Status: Acute Assessment and Plan: EGD with possible biopsy or dilatation or cautery.
[2023-02-21 11:51] VITALS: BP 124/86; PULSE 69; RESP 20; TEMP 36.6; O2SAT 100
[2023-02-21] MEDS: LACTATED RINGERS 1,000 ML 150 ML IV CONT (12:00)
[2023-02-21 13:07] VITALS: BP 102/69; PULSE 78; RESP 19; O2SAT 100
[2023-02-21 13:17] VITALS: BP 97/63; PULSE 70; RESP 22; O2SAT 99
[2023-02-21 13:27] VITALS: BP 108/73; PULSE 69; RESP 15; O2SAT 100
== END 2023-02-21 13:36 | disposition home or self-care (01) ==
PROVIDERS: PCP Family Medicine; Visit Provider Internal Medicine Gastroenterology
PROC: 0DJ08ZZ Inspection of Upper Intestinal Tract, Via Natural or Artificial Opening Endoscopic (ICD-10-PCS; CPT 43235; principal; 2023-02-21 13:00)
DX: K21.00 Gastro-esophageal reflux disease with esophagitis, without bleeding (principal); K22.2 Esophageal obstruction; F41.9 Anxiety disorder, unspecified
CPT/HCPCS: 43239; 87081; 88305; J2704; J7120

== ENCOUNTER 2023-03-19 01:49 | Day surgery (SDC) | payer BC, SELFPAY ==
[2023-03-15 12:08] VITALS: BMI 25.8
--- NOTE | 2023-03-15 12:11 | PC.NURSE ---
Report to the Outpatient Waiting Room, entrance under the green pavilion located off [facility], at time 0830 on date 03/19/23. Planned Procedure Time: 1030. Time changes happen often and if your time is changed the preop area will call you the afternoon before. - You and your visitor will be asked to self-screen and do not enter if you have any COVID symptoms. - A mask is optional within the hospital at this time. Patients may have clear liquids (water, carbonated beverages, clear teas, apple juice) until 3 hours prior to surgery with a maximum of 20 ounces. - No food from midnight until time of surgery Take the following medications with a SIP of water the morning of surgery: NONE DO NOT STOP ANY OF YOUR OTHER PRESCRIPTION MEDICATIONS PRIOR TO SURGERY ?EXCEPT THE FOLLOWING Medications to discontinue per physician: N/A Date to take last dose: N/A Please no make-up, nail montenegrin, hairspray, perfume, deodorant, or body powder the day of surgery. No jewelry (including any body piercings) or valuables the day of surgery, leave them at home. Please take a shower or bath the night before, or the morning of, surgery with an antibacterial soap. Wear comfortable, loose fitting clothing. - Jewelry must be removed prior to entering the operating room. Rings and piercings that are not removed may be cut off. - The hospital will not accept responsibility for valuables. - Please leave all valuables, including medications, at home the day of surgery. If you are going home after surgery, a licensed snaker tractor driver must drive you home. - NO public transportation without another adult if you receive anesthesia. - We recommend that an adult stay with you for 24 hours following discharge. - We also recommend that you do not drive, make important decision, drink alcoholic beverages, or take any drugs that were not prescribed by your health care provider for at least 24 hours after your discharge time. Follow any additional instructions given to you from your surgeon. If you or anyone in your household have experienced Covid symptoms in the past week, please notify your surgeon or the nurse liaison at the phone number below for possible testing. Telephone instructions given to PT - DARYA ALMEIDA and asked if any additional questions and then verbalized understanding. Patient advised to call surgeon office or pre surgery nurse liaison [phone] if any additional questions.
[2023-03-19] VITALS (7 sets, daily range): BP systolic 99–134; BP diastolic 53–87; PULSE 60–80; RESP 12–16; TEMP 36.2–36.9; O2SAT 100
--- NOTE | 2023-03-19 07:26 | WPDHPUPDATE1 ---
History and Physical Update Update Date/Time: 03/19/23 07:26 History and Physical has been reviewed, including an updated exam of the patient. There are NO changes in the patient's condition. Risks, benefits, and alternatives have been discussed and questions answered. Patient agrees to proceed with procedure.
[2023-03-19] MEDS: LACTATED RINGERS 1,000 ML 30 ML IV CONT (09:16)
--- NOTE | 2023-03-19 10:18 | WPDANESEPPF ---
Anes - Initial Pre Proc Eval Procedure: Operation Date: 03/19/23 10:30 Proposed Procedures p Excisional Biopsy of Left Upper Quadrant Subcutaneous Mass - Sheree Mosher MD Date/Time: 03/19/23 10:18 Surgeon: Sheree Mosher MD Pre Op Diagnosis: left upper quadrant subcutaneous mass Patient Data Age: 32 Gender: M Height: 1.78 m Weight: 82.6 kg Last Vital Signs Temp 98.5 F 03/19/23 09:23 Pulse 74 03/19/23 09:23 Resp 16 03/19/23 09:23 BP 121/79 03/19/23 09:23 Pulse Ox 100 03/19/23 09:23 O2 Del Method Room Air 03/19/23 09:23 Allergies Allergy/AdvReac Type Severity Reaction Status Date / Time No Known Allergies Allergy Verified 03/19/23 08:57 Home Medications Medication Instructions Recorded Confirmed Type amitriptyline 50 mg tablet 50 mg PO QPM #90 tabs 03/30/22 03/15/23 Rx pantoprazole 40 mg tablet,delayed 40 mg PO QAM #30 tabs 02/21/23 03/15/23 Rx release Patient hx anesthesia problems: none Family hx anesthesia problems: none Results Review: All pre-operative results and documents have been reviewed as part of the pre-operative evaluation. [facility] Past Medical History Medical History Anxiety Chronic intractable headache GERD (gastroesophageal reflux disease) Surgical History Surgical History History of appendectomy 03/05/21 Family History Family History Father Family history of elevated blood lipids Hypertension Grandparent Family history of elevated blood lipids Cerebrovascular accident Acute myocardial infarction, Onset Age: 88 Carcinoma of colon, Onset Age: 61 Family history of lung cancer, Onset Age: 67 Family history of malignant neoplasm of esophagus, Onset Age: 67 Mother Patient's mother is in good health Sibling Patient's sister is in good health Social History Social History Smoking status: Never smoker Second hand tobacco smoke exposure: No Alcohol intake: current Drinks per week: 10 Alcohol use details: beer, whiskey Substance use: never Substance use type: does not use Lack of Transportation: No Lack of Food: Never True Current Housing: I Have Housing Concerned About Future Housing: No Difficulty Paying Gas/Electric Bills: No Difficulty Paying for Meds: No Currently Unemployed: No Education: Master's Degree or Higher Difficulty w/ Childcare or Family Care: No Living arrangements: with family Spiritual care concerns: No Anes - Eval Final PreProcedure Day of Procedure 03/19/23 10:18 Patient weight: normal Heart: regular rate and rhythm Lungs: clear to auscultation Airway: Mallampati scale class II Neurological: alert and oriented Last oral intake: >/= 8 hours ASA classification: II Emergent: no Anesthetic plan: proceed Anesthesia type and monitoring: general GIVS and standard monitoring Results Review: All pre-operative results and documents have been reviewed as part of the pre-operative evaluation. Informed Consent: The patient's anesthetic plan and its attendant risks and benefits were discussed with the patient/family/POA. Questions were solicited and answers provided to the satisfaction of the patient/family/POA.
[2023-03-19] MEDS: ceFAZolin 2 GM/D5W 50 ML 2 GM/50 ML BAG IVPB (10:32)
[2023-03-19] MEDS: BUPIVACAINE/EPINEPHRINE 0.5% 50 ML VIAL 30 ML INFILTRATE (10:51)
--- NOTE | 2023-03-19 11:05 | W.PM.PROC2 ---
Procedure Note - Detailed Date of Procedure 03/19/23 Pre-op Diagnosis left upper quadrant subcutaneous mass measuring 2 x 2 cm Post-op Diagnosis Same Procedure Performed excisional biopsy left upper quadrant subcutaneous mass measuring 2 x 2 cm Surgeon Sheree Mosher MD Anesthesia General and Local Indications 32-year-old male presenting to the office with left upper abdomen subcutaneous mass. The patient reports tenderness to palpation from that area and imaging consistent with subcutaneous mass, lipoma. Findings 2 x 2 cm left upper quadrant subcutaneous mass most consistent with lipoma Description of Procedure The patient is taken to the operating room and placed in the supine position. After adequate induction of general anesthesia, the patient was prepped and draped in the normal sterile fashion. A time-out was then done to verify the patient's identity, as well as the procedure being performed. I began by localizing the area and around this mass in the left upper abdomen. After adequate localization, a small incision was made over the mass. This was taken down through the dermis into the subcutaneous tissue. A well-circumscribed mass was located at this point. I was able to both bluntly and sharply dissect around the mass and was removed in full. This was most consistent with lipoma measuring approximately 2 x 2 cm. No other pathology was noted in this area. I gained hemostasis with the Bovie cautery. I then closed the subcutaneous tissue with 3-0 Vicryl suture. The skin was closed with 4-0 Monocryl subcuticular suture. Dermabond was placed on the wound. The patient tolerated the procedure well was extubated postoperatively. He was transferred to the recovery room in stable condition. Estimated Blood Loss 5 Pathology Yes Complications No immediate complications Condition Stable Disposition PACU [facility] Billing Surgery - Charge Forward: Surgery Billing
== END 2023-03-19 12:25 | disposition home or self-care (01) ==
PROVIDERS: PCP Family Medicine; Visit Provider Surgery
PROC: (CPT 22903; principal; 2023-03-19 10:30)
DX: D17.1 Benign lipomatous neoplasm of skin and subcutaneous tissue of trunk (principal); K21.9 Gastro-esophageal reflux disease without esophagitis; F41.9 Anxiety disorder, unspecified
CPT/HCPCS: 22903; 88304; J0690; J1100; J2250; J2405; J2704; J3010; J7120

== ENCOUNTER 2025-01-16 13:44 | Outpatient (CLI) | payer BC, SELFPAY ==
--- NOTE | ~2025-01-16 | US_ITS ---
US thyroid INDICATION: Nontoxic goiter TECHNIQUE: Real-time sonographic images of the thyroid gland were obtained. COMPARISON: No prior studies for comparison. FINDINGS: The right thyroid lobe measures 5.6 x 2.1 x 1.7 cm. The left thyroid lobe measures 4.7 x 1.9 x 1.6 cm. There is normal echotexture and echogenicity throughout the thyroid gland. In the right lobe there is a solid hypoechoic wider than tall smoothly marginated mass without echogenic foci measuring 6 mm, TR 4.. No discrete masses in the left lobe. Normal vascular flow is present. IMPRESSION: 1. Small 6 mm right thyroid mass, likely benign. No follow-up required. Reviewed, dictated and finalized at location O.
== END 2025-01-16 13:45 | disposition home or self-care (01) ==
LOC: GOSHIMG 13:46
PROVIDERS: PCP Emergency Medicine; Visit Provider Emergency Medicine
DX: E04.1 Nontoxic single thyroid nodule (principal)
CPT/HCPCS: 76536